=== PATIENT | female | born 2000 | race Caucasian/White ===

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

== ENCOUNTER 2021-08-12 00:37 | Outpatient (CLI) | payer OTHER, SELFPAY ==
--- NOTE | 2021-08-12 08:16 | DI.RAD_ITS ---
Exam(s) XR TOE RT GREAT EXAM: XR TOE RT GREAT CLINICAL HISTORY: GREAT TOE PAIN, M79.676. TECHNIQUE: 2D digital imaging was performed. COMPARISON: No exams were available for comparison FINDINGS: There is no evidence of acute fracture in the great toe phalanges and great toe metatarsal. No diast asis of the Lisfranc joint. No other fractures identified. Accessory ossicle/sesamoid bone is noted on the medial aspect of the foot adjacent to the navicular tuberosity. IMPRESSION: No fracture evident. DATA REPOSITORY: RADIATION DOSE DELIVERED:
== END 2021-08-12 00:57 ==
PROVIDERS: Visit Provider Family Medicine
DX: M79.674 Pain in right toe(s) (principal)
CPT/HCPCS: 73660

== ENCOUNTER 2021-08-17 22:29 | Outpatient (REF) | payer OTHER, SELFPAY ==
[2021-08-19 17:18] LABS: COVID-19 RT-PCR UVMMC Result Negative (Negative)
== END 2021-08-17 22:30 | disposition home or self-care (01) ==
LOC: NCHCN 22:29
PROVIDERS: Visit Provider Nurse Practitioner Family
DX: Z20.822 Contact with and (suspected) exposure to COVID-19 (principal); R05.8 Other specified cough; R09.81 Nasal congestion
CPT/HCPCS: U0003

== ENCOUNTER 2021-09-07 09:21 | Outpatient (REF) | payer OTHER, SELFPAY ==
[2021-09-08 23:17] LABS: COVID-19 RT-PCR UVMMC Result Negative (Negative)
== END 2021-09-07 09:22 | disposition home or self-care (01) ==
LOC: NCHCN 09:21
PROVIDERS: Visit Provider Nurse Practitioner Family
DX: Z20.822 Contact with and (suspected) exposure to COVID-19 (principal); J06.9 Acute upper respiratory infection, unspecified
CPT/HCPCS: U0003

== ENCOUNTER 2021-09-14 17:29 | Outpatient (REF) | payer SELFPAY ==
[2021-09-16 08:59] LABS: COVID-19 RT-PCR UVMMC Result Negative (Negative)
== END 2021-09-14 17:30 | disposition home or self-care (01) ==
LOC: NCHCN 17:29
PROVIDERS: Visit Provider Nurse Practitioner Family
DX: Z20.822 Contact with and (suspected) exposure to COVID-19 (principal)
CPT/HCPCS: U0003

== ENCOUNTER 2021-11-25 09:20 | Outpatient (REF) | payer OTHER, SELFPAY ==
[2021-11-25 12:36] LABS: Anion Gap 9.2 mmol/L (3-11); BUN 9 mg/dL (7-18); CO2 25.8 mmol/L (21.0-32.0); CREATININE 0.7 mg/dL (0.55-1.02); Calcium 9.1 mg/dL (8.5-10.1); Chloride 105 mmol/L (98-107); Glucose 105 mg/dL (74-106); Potassium 4.1 mmol/L (3.5-5.1); Sodium 140 mmol/L (136-145)
== END 2021-11-25 09:21 | disposition home or self-care (01) ==
LOC: NCHCN 09:20
PROVIDERS: Visit Provider Nurse Practitioner Family
DX: E23.2 Diabetes insipidus (principal)
CPT/HCPCS: 80048

== ENCOUNTER 2022-01-11 18:40 | Outpatient (REF) | payer OTHER, SELFPAY ==
[2022-01-11 19:37] LABS: TSH (W/Ref FT4) 1.13 uIU/mL (0.36-3.74)
== END 2022-01-11 18:41 | disposition home or self-care (01) ==
LOC: NCHCN 18:40
PROVIDERS: Visit Provider Nurse Practitioner Family
DX: R53.83 Other fatigue (principal)
CPT/HCPCS: 84443

== ENCOUNTER 2022-06-22 11:20 | Outpatient (CLI) | payer OTHER, SELFPAY ==
--- NOTE | 2022-06-22 15:30 | DI.RAD_ITS ---
Exam(s) XR FOOT LT COMPLETE EXAM: XR FOOT LT COMPLETE CLINICAL HISTORY: LT FOOT PAIN, M79.672. TECHNIQUE: 2D digital imaging was performed of the left foot. Three images were obtained. AP, obli que and lateral views were obtained. COMPARISON: No priors for comparison. FINDINGS: BONES: No acute fracture is present. No bony destructive lesion is seen. JOINTS: No dislocation present. SOFT TISSUE: Normal. IMPRESSION: No acute abnormality. DATA REPOSITORY: RADIATION DOSE DELIVERED:
== END 2022-06-22 11:40 ==
LOC: DI 11:24
PROVIDERS: Visit Provider Nurse Practitioner Family
DX: M79.672 Pain in left foot (principal)
CPT/HCPCS: 73630

== ENCOUNTER 2022-09-01 10:33 | Outpatient (REF) | payer OTHER, SELFPAY ==
--- NOTE | 2022-09-01 09:45 | PAPFT_PTH ---
PATIENT: Rika Bucio LOC: [facility] U#:[id number] AGE/SX: 22/F ROOM: RE09/01/[address]: Darshana Luo NP : 2000 BED: DIS: 09/01/2022 SPEC #: [id number] RECD: 09/01/22 12:57 STATUS: CAYET[place]O REQ #: [id number] FIONA: 09/01/22 09:[address]: Darshana Luo NP DEPT: [facility] Cytology RECD BY: Steffanie Yadav ENTERED: 09/01/22 12:58 SP TYPE: PAPFT OTHR DR: Ary Melgar Tissues: 1 - CX/ENDOCX FOR PAP SMEARS Procedures: PAP THIN PREP/UVM Screening Comments: [id number] (CHLAMYDIA/GC)
[2022-09-02 15:08] LABS: Chlamydia Result Negative (Negative); GC Result Negative (Negative)
== END 2022-09-01 10:34 | disposition home or self-care (01) ==
LOC: LBN 10:33
PROVIDERS: PCP Nurse Practitioner Family; Visit Provider Nurse Practitioner Women's Health
DX: Z11.3 Encounter for screening for infections with a predominantly sexual mode of transmission (principal); Z12.4 Encounter for screening for malignant neoplasm of cervix
CPT/HCPCS: 87491; 87591; 88142

== ENCOUNTER 2022-09-23 15:26 | Outpatient (REF) | payer BC, SELFPAY ==
--- NOTE | 2022-09-23 13:20 | LABIA_PTH ---
PATIENT: Rika Bucio LOC: [facility] U#:[id number] AGE/SX: 22/F ROOM: RE09/23/[address]: Yuridia Gutierrez MD : 2000 BED: DIS: 09/23/2022 SPEC #: [id number] RECD: 09/23/22 18:19 STATUS: CAYET[place]O REQ #: [id number] FIONA: 09/23/22 13:[address]: Yuridia Gutierrez DEPT: Surgical Specimen RECD BY: Steffanie Yadav ENTERED: 09/23/22 18:19 SP TYPE: LABIA OTHR DR: Ary Melgar Tissues: 1 - LABIA BX Procedures: GROSS AND MICRO LEVEL 4 Comments: [id number]
== END 2022-09-23 15:27 | disposition home or self-care (01) ==
LOC: LBN 15:26
PROVIDERS: PCP Nurse Practitioner Family; Visit Provider Obstetrics & Gynecology
DX: N90.89 Other specified noninflammatory disorders of vulva and perineum (principal)
CPT/HCPCS: 88305

== ENCOUNTER 2022-09-27 12:08 | Outpatient (REF) | payer BC, SELFPAY ==
[2022-09-27 16:06] LABS: Abs Immature Grans 0.02 10^3/uL (0.0-0.06); Absolute Basophil Count 0.07 10^3/uL (0.0-0.2); Absolute Lymphocyte Count 3.81 10^3/uL (1.2-3.4); Absolute Monocyte Count 0.64 10^3/uL (0.1-0.8); Absolute Neutrophil Count 6.49 10^3/uL (1.2-6.7); Basophils % 0.6; Eosinophils % 1.3; HCT 39.9 % (36.0-46.0); HGB 13.4 g/dL (11.2-15.7); Immature Grans % 0.2; Lymphocytes % 34.1; MCH 29.1 pg (27.0-33.0); MCHC 33.6 % (32.0-36.0); MCV 87 fL (80-95); MPV 9.9 fL (8.0-11.0); Monocytes % 5.7; Neutrophils % 58.1; Platelet Count 359 10^3/uL (130-400); RBC 4.61 10^6/uL (3.93-5.22); RDW 11.9 % (11.7-14.6); RDW-SD 37.9 fL; WBC 11.17 10^3/uL (4.4-10.8)
[2022-09-27 16:08] LABS: Absolute Eosinophil Count 0.15 10^3/uL (0.0-0.7)
[2022-09-27 16:35] LABS: ALT 60 U/L (14-59); AST 34 U/L (15-37); Albumin 3.8 g/dL (3.4-5.0); Alkaline Phosphatase 92 U/L (46-116); Anion Gap 6.3 mmol/L (3-11); BUN 6 mg/dL (7-18); Bilirubin, Total 0.5 mg/dL (0.2-1.0); CO2 27.7 mmol/L (21.0-32.0); CREATININE 0.8 mg/dL (0.55-1.02); Chloride 102 mmol/L (98-107); Estimated GFR 107.44 (mL/min/1.73m2); Glucose 95 mg/dL (74-106); Potassium 3.9 mmol/L (3.5-5.1); Sodium 136 mmol/L (136-145); Total Protein 7.3 g/dL (6.4-8.2)
== END 2022-09-27 12:09 | disposition home or self-care (01) ==
LOC: NCHCN 12:08
PROVIDERS: PCP Nurse Practitioner Family; Visit Provider Nurse Practitioner Family
DX: R10.10 Upper abdominal pain, unspecified (principal)
CPT/HCPCS: 80053; 85025

== ENCOUNTER 2022-10-25 15:10 | Outpatient (REF) | payer BC, SELFPAY ==
[2022-10-27 12:25] LABS: COVID-19 RT-PCR UVMMC Result Positive (Negative)
== END 2022-10-25 15:11 | disposition home or self-care (01) ==
LOC: LBN 15:10
PROVIDERS: PCP Nurse Practitioner Family; Visit Provider Nurse Practitioner Family
DX: Z20.822 Contact with and (suspected) exposure to COVID-19 (principal)
CPT/HCPCS: U0003

== ENCOUNTER 2023-01-10 18:49 | Outpatient (REF) | payer BC, SELFPAY ==
[2023-01-10 21:28] LABS: ALT 52 U/L (14-59); AST 24 U/L (15-37); Albumin 3.8 g/dL (3.4-5.0); Alkaline Phosphatase 82 U/L (46-116); Anion Gap 6.8 mmol/L (3-11); BUN 8 mg/dL (7-18); Bilirubin, Total 0.3 mg/dL (0.2-1.0); CO2 29.2 mmol/L (21.0-32.0); CREATININE 0.7 mg/dL (0.55-1.02); Calcium 8.9 mg/dL (8.5-10.1); Calculated LDL 127 mg/dL (<100); Chloride 101 mmol/L (98-107); Cholesterol 196 mg/dL (<200); Estimated GFR 126.11 (mL/min/1.73m2); Glucose 116 mg/dL (74-106); HDL Cholesterol 39 mg/dL (40-60); Potassium 3.8 mmol/L (3.5-5.1); Sodium 137 mmol/L (136-145); Total Protein 7.6 g/dL (6.4-8.2); Triglyceride 153 mg/dL (<150)
== END 2023-01-10 18:50 | disposition home or self-care (01) ==
LOC: NCHCN 18:49
PROVIDERS: PCP Nurse Practitioner Family; Visit Provider Nurse Practitioner Family
DX: R73.03 Prediabetes (principal); R94.5 Abnormal results of liver function studies; R79.89 Other specified abnormal findings of blood chemistry
CPT/HCPCS: 80053; 80061; 83036

== ENCOUNTER 2023-10-18 16:29 | Outpatient (REF) | payer BC, SELFPAY ==
[2023-10-20 14:52] LABS: Chlamydia Result Negative (Negative); GC Result Negative (Negative)
== END 2023-10-18 16:30 | disposition home or self-care (01) ==
LOC: LBN 16:29
PROVIDERS: PCP Nurse Practitioner Family; Visit Provider Advanced Practice Midwife
DX: N89.8 Other specified noninflammatory disorders of vagina (principal); Z11.3 Encounter for screening for infections with a predominantly sexual mode of transmission
CPT/HCPCS: 87491; 87591; 87480; 87510; 87660

== ENCOUNTER 2024-01-16 18:03 | Outpatient (REF) | payer BC, SELFPAY ==
[2024-01-16 19:26] LABS: Abs Immature Grans 0.04 10^3/uL (0.0-0.06); Absolute Basophil Count 0.07 10^3/uL (0.0-0.2); Absolute Eosinophil Count 0.21 10^3/uL (0.0-0.7); Absolute Lymphocyte Count 4.49 10^3/uL (1.2-3.4); Absolute Monocyte Count 0.82 10^3/uL (0.1-0.8); Basophils % 0.6 %; Eosinophils % 1.8 %; HCT 41.4 % (36.0-46.0); Immature Grans % 0.3 %; Lymphocytes % 38.3 %; MCH 29.3 pg (27.0-33.0); MCHC 33.8 % (32.0-36.0); MCV 87 fL (80-95); MPV 9.7 fL (8.0-11.0); Platelet Count 384 10^3/uL (130-400); RBC 4.78 10^6/uL (3.93-5.22); RDW 11.6 % (11.7-14.6); RDW-SD 36.8 fL; WBC 11.73 10^3/uL (4.4-10.8)
[2024-01-16 19:34] LABS: ALT 56 U/L (14-59); AST 19 U/L (15-37); Alkaline Phosphatase 81 U/L (46-116); Anion Gap 12.7 mmol/L (3-11); BUN 7 mg/dL (7-18); Bilirubin, Total 0.4 mg/dL (0.2-1.0); CO2 26.3 mmol/L (21.0-32.0); CREATININE 0.9 mg/dL (0.55-1.02); Calcium 9.6 mg/dL (8.5-10.1); Chloride 104 mmol/L (98-107); Glucose 162 mg/dL (74-106); Potassium 3.9 mmol/L (3.5-5.1); Sodium 143 mmol/L (136-145); TSH (W/Ref FT4) 1.25 uIU/mL (0.36-3.74); Total Protein 7.3 g/dL (6.4-8.2)
[2024-01-16 19:42] LABS: Hemoglobin A1C 6.5 % (<5.7)
== END 2024-01-16 18:04 | disposition home or self-care (01) ==
LOC: NCHCN 18:03
PROVIDERS: PCP Nurse Practitioner Family; Visit Provider Nurse Practitioner Family
DX: Z00.00 Encounter for general adult medical examination without abnormal findings (principal); R73.03 Prediabetes; R53.83 Other fatigue
CPT/HCPCS: 80053; 83036; 84443; 85025

== ENCOUNTER 2024-04-14 15:56 | Outpatient (REF) | payer BC, SELFPAY | END 2024-04-14 15:57 | disposition home or self-care (01) | LOC: LBN 15:56 | PROVIDERS: PCP Nurse Practitioner Family; Visit Provider Physician Assistant Medical | DX: J02.9 Acute pharyngitis, unspecified (principal) | CPT/HCPCS: 87070 ==

== ENCOUNTER 2024-08-03 09:24 | Outpatient (REF) | payer BC, SELFPAY ==
[2024-08-03 16:58] LABS: Hemoglobin A1C 6.6 % (<5.7)
== END 2024-08-03 09:25 | disposition home or self-care (01) ==
LOC: NCHCN 09:24
PROVIDERS: PCP Nurse Practitioner Family; Visit Provider Nurse Practitioner Family
DX: R73.03 Prediabetes (principal)
CPT/HCPCS: 83036

== ENCOUNTER 2024-08-05 11:13 | Emergency (ER) | payer BC, SELFPAY ==
[2024-08-05 11:17] VITALS: BP 140/84; PULSE 120; RESP 18; TEMP 36.6; O2SAT 96
--- NOTE | 2024-08-05 11:30 | DI.RAD_ITS ---
Exam(s) XR CHEST 2V PA LATERAL EXAM: XR CHEST 2V PA LATERAL CLINICAL HISTORY: Cough. TECHNIQUE: 2D digital imaging was performed. COMPARISON: No exams were available for comparison FINDINGS: 2 views: Heart size is normal. The mediastinum is not widened. Lungs are clear. No infiltrates nor pleural effusions. IMPRESSION: No acute pulmonary findings. DATA REPOSITORY: RADIATION DOSE DELIVERED:
[2024-08-05 11:37] LABS: Bilirubin Negative (Negative); Blood Moderate (Negative); Clarity Clear (Clear); Glucose Negative (Negative); Ketones 15 mg/dL (Negative); Leukocyte Esterase Negative (Negative); Nitrite Negative (Negative); Specific Gravity <= 1.005 (1.005-1.025); Urobilinogen 0.2 mg/dL (Up to 0.2); pH 6.5 (5-8)
--- NOTE | 2024-08-05 11:38 | W.ED.GENAD ---
Discharge Plan Disposition Patient Disposition: Home Condition: Stable Discharge Details Clinical Impression: Mononucleosis Primary Care Provider: Ary Melgar ED Provider: Kassandra Michaels Home Meds and New Rx's Prescriptions: No Action albuterol sulfate 90 mcg/actuation HFA aerosol inhaler 2 puff inhalation Q4H PRN (Reason: shortness of breath or wheezing) Qty: 8.5 0RF Nexplanon 68 mg implant 1 implant subdermal ONCE Rx Instructions: as a single dose propranolol 10 mg tablet 10 mg PO BID PRN desmopressin 0.1 mg tablet 0.2 mg PO BID Qty: 120 2RF Discharge Instructions Instructions: Mononucleosis Additional Instructions: At this time you have tested positive for mononucleosis. This is caused from Maia-Wilkerson virus. Treatment is usually symptomatic and supportive meaning Tylenol ibuprofen every 2-4 hours, and increasing fluids. CT shows no significant abnormality there is some enlarged lymph nodes noted which could be from the mono. Follow up with primary care provider in 3-5 days. Return to ED sooner if any worsening or concerns. Please take Tylenol or Ibuprofen with food every 4-6 hours as needed for pain and swelling. Stand Alone Forms: Work Release Referrals: Ary Melgar [Primary Care Provider] - 5 days HPI General Mode of arrival: ambulatory. Date/Time Provider Initiated Documentation: 08/05/24 11:16. Limitations to Documentation: no limitations. Information obtained by: patient, RN notes reviewed and old records reviewed. HPI Narrative: 23-year-old female presents to the ER with a chief complaint of headache, dizziness x 8 days and 4 days of vomiting. Patient was reportedly diagnosed by her PCP with type 2 diabetes 2 days ago. She has not started any treatment for this. She denies any recent head injuries. She does report recent URI type symptoms with a cough. Does have a past medical history of PCOS, diabetes insipidus, lactose intolerance, appendicitis. She denies any neck stiffness or any other associated concerns. Related Data Home Medications ?Medication ?Instructions ?Recorded ?Confirmed albuterol sulfate 90 mcg/actuation 2 puff inhalation Q4H PRN 01/19/21 08/05/24 aerosol inhaler shortness of breath or wheezing #8.5 grams desmopressin 0.1 mg tablet 0.2 mg (2 x 0.1 mg) PO BID #120 10/14/21 08/05/24 tab-caps etonogestrel 68 mg subdermal 1 implant subdermal ONCE 09/01/22 08/05/24 implant (Nexplanon) propranolol 10 mg tablet 10 mg PO BID PRN 09/01/22 08/05/24 Previous Rx's ?Medication ?Instructions ?Recorded albuterol sulfate 90 mcg/actuation 2 puff inhalation Q4H PRN 01/19/21 aerosol inhaler shortness of breath or wheezing #8.5 grams desmopressin 0.1 mg tablet 0.2 mg (2 x 0.1 mg) PO BID #120 10/14/21 tab-caps Allergies Allergy/AdvReac Type Severity Reaction Status Date / Time No Known Allergies Allergy Verified 08/05/24 11:40 General Stated Complaint: GenMedical JOSE: 3 Review of Systems All systems reviewed & are unremarkable except as noted in HPI and below Constitutional Constitutional: Reports as per HPI, Reports headache(s) and Reports poor appetite ENT Ears, Nose, Mouth, and Throat: Reports dizziness and Reports headache(s) Gastrointestinal Gastrointestinal: Reports nausea and Reports vomiting Neurologic Neurologic: Reports dizziness and Reports headache(s) Exam Narrative Exam Narrative: Constitutional: Alert and oriented x3. Appears stated age. Normal body habitus. Head: Normocephalic, no trauma. Eyes: Pupils PERRL, Red reflex noted, EOM's intact. Eyelids symmetrical without lesions, discharge, or swelling. ENT: Bilateral TM's WNL, External ear normal to inspection, no mastoid TTP, swelling, or erythema, Nasal turbinates WNL, no nasal discharge. Normal dentition, Posterior pharynx WNL, no exudate. Chest: RRR, Normal S1, S2, distal pulses intact. Resp: Lungs clear to auscultation bilaterally, no wheezes, rales, or rhonchi. Abdomen: Soft, non-distended, Normoactive bowel sounds all 4 quads. Musculoskeletal: Normal gait, Moves all 4 extremities without difficulty. Skin: No suspicious rashes or lesions. Capillary refill less than 2 sec. Neurologic: Cranial nerves II-XII intact. Alert and oriented x 3. Motor: No deficits noted. Sensory: Intact bilaterally all 4 extremities. Hematologic/Lymphatic: No ecchymosis, no lymphadenopathy. Course Vital Signs Vital signs: Vital Signs Temperature 36.6 C 08/05/24 11:17 Pulse 120 H 08/05/24 11:17 Respiratory Rate 18 08/05/24 11:17 Blood Pressure 140/84 08/05/24 11:17 Pulse Oximetry 96 08/05/24 11:17 Temperature 36.6 C 08/05/24 11:17 Temperature Source Oral 08/05/24 11:17 Pulse 120 H 08/05/24 11:17 Respiratory Rate 18 08/05/24 11:17 Blood Pressure 140/84 08/05/24 11:17 Blood Pressure Position Sitting 08/05/24 11:17 Pulse Oximetry 96 08/05/24 11:17 Oxygen Delivery Method Room Air 08/05/24 11:17 Oxygen Flow Rate 0 08/05/24 11:17 Lab/Test Results Lab/Test Results: POC- Test(urine) Negative Medical Decision Making Workup ordered including CBC CMP, UA lactate, chest x-ray. Will give Zofran and Toradol. Will also add on a Fluvid swab. CT abdomen ordered due to elevated liver enzymes and hepatitis panel added on. Linn added onto labs. Positive for mono, discussed results with patient who verbalized understanding. CT shows some enlarged lymph nodes and borderline splenomegaly which is consistent with mono. Patient discharged with home care follow-up care and strict return instructions she verbalized understanding. She tolerating p.o. without difficulty here in the department. This text was generated using [employer] system, please disregard any oddities of phrase or misspellings. Medical Records Medical records reviewed: Yes I reviewed the patient's medical records. Imaging Data Radiologic Study: Imaging: X-Ray Radiologist's impression: [facility] protocol: Radiologic exam of the chest. Views: 2 views. COMPARISON: No relevant prior studies available. FINDINGS: Lungs: Unremarkable. No consolidation. Pleural spaces: Unremarkable. No pleural effusion. No pneumothorax. Heart/Mediastinum: Unremarkable. No cardiomegaly. Bones/joints: Unremarkable. IMPRESSION: No acute findings. Thank you for allowing us to participate in the care of your patient. Dictated and Authenticated by: Alfredito Stevens MD Radiologic Study #2: Imaging: CT Scan Radiologist's impression: Liver: Normal. No mass. Gallbladder and biliary ducts: The gallbladder is unremarkable Pancreas: Normal. No ductal dilation. Spleen: Borderline splenomegaly 13 cm.. Adrenal glands: Normal. No mass. Kidneys and ureters: Normal. No hydronephrosis. Stomach and bowel: Unremarkable. No obstruction. No mucosal thickening. Appendix: Surgical clips in the cecum may reflect prior appendectomy Intraperitoneal space: Unremarkable. No free air. No significant fluid collection. Vasculature: See Lymph nodes finding. Lymph nodes: Pathologic node in the retroperitoneum between the aorta and IVC 12 x 10 mm. . Pathologic node in the left para-aortic region 12 x 10 mm . Anterior smaller nodes in the retroperitoneum. Recommend further evaluation. Urinary bladder: Unremarkable as visualized. Reproductive: Unremarkable as visualized. Bones/joints: Unremarkable. No acute fracture. BO HAYWARD Preliminary Radiology Report PUMPMAN (QA) DISCREPANCY? If there is a discrepancy between the preliminary and final interpretation, please notify [email or web address] via [email or web address]. If you do not have access to our QA portal, call our QA team at [phone] CONFIDENTIALITY STATEMENT This report is intended only for the use of the referring physician, and only in accordance with law, If you received this in error, call [phone] Page 2 of 2 Soft tissues: Umbilical hernia contains fat IMPRESSION: 1. Borderline splenomegaly 13 cm.. Differential diagnosis of splenomegaly is lymphoma/leukemia, mononucleosis, hemolytic anemia, portal hypertension. 2. Pathologic node in the left para-aortic region 12 x 10 mm . Anterior smaller nodes in the retroperitoneum. Recommend further evaluation. Thank you for allowing us to participate in the care of your patient. Dictated and Authenticated by: Alfredito Stevens MD Lab Data Lab results reviewed: Yes I reviewed the patient's lab results. Labs: Laboratory Tests Range/Units 08/05/24 08/05/24 08/05/24 11:25 11:37 11:47 WBC (4.4-10.8) 10^3/uL 10.31 RBC (3.93-5.22) 10^6/uL 4.91 Hgb (11.2-15.7) g/dL 14.6 Hct (36.0-46.0) % 42.2 MCV (80-95) fL 86 MCH (27.0-33.0) pg 29.7 MCHC (32.0-36.0) % 34.6 RDW (11.7-14.6) % 12.2 Plt Count (130-400) 10^3/uL 147 MPV (8.0-11.0) fL 9.5 Immature Gran % See Differential Neutrophils % % 23.0 Band Neutrophils % % 4 Lymphocytes % % 31.0 Atypical Lymphs % % 28 Monocytes % % 12.0 Eosinophils % % 1.0 Basophils % % 0.0 Metamyelocytes % 1 Nucleated RBC % (0.0-0.3) % 0.0 Absolute Neutrophils (1.2-6.7) 10^3/uL 2.78 Absolute Lymphocytes (1.2-3.4) 10^3/uL 6.08 H Absolute Monocytes (0.1-0.8) 10^3/uL 1.24 H Absolute Eosinophils (0.0-0.7) 10^3/uL 0.10 Absolute Basophils (0.0-0.2) 10^3/uL 0.00 RBC Morphology Normal VBG Lactate (0.6-1.4) mmol/L 1.5 H Sodium (136-145) mmol/L 138 Potassium (3.5-5.1) mmol/L 3.7 Chloride (98-107) mmol/L 101 Carbon Dioxide (21.0-32.0) mmol/L 24.8 Anion Gap (3-11) mmol/L 12.2 H BUN (7-18) mg/dL 5 L Creatinine (0.55-1.02) mg/dL 0.8 Est GFR (CKD-EPI 2020) (mL/min/1.73m2) 106.11 Glucose (74-106) mg/dL 116 H Calcium (8.5-10.1) mg/dL 9.1 Magnesium (1.8-2.4) mg/dL 1.9 Total Bilirubin (0.2-1.0) mg/dL 2.89 H AST (15-37) U/L 279 H ALT (14-59) U/L 340 H Alkaline Phosphatase (46-116) U/L 212 H Total Protein (6.4-8.2) g/dL 7.7 Albumin (3.4-5.0) g/dL 3.7 Lipase (<78) U/L 28 Urine Color (Yellow) Yellow Urine Clarity (Clear) Clear Urine pH (5-8) 6.5 Ur Specific Jolon (1.005-1.025) <= 1.005 Urine Protein (Neg-Trace) mg/dL Negative Urine Ketones (Negative) mg/dL 15 H Urine Blood (Negative) Moderate H Urine Nitrite (Negative) Negative Urine Bilirubin (Negative) Negative Urine Urobilinogen (Up to 0.2) mg/dL 0.2 Ur Leukocyte Esterase (Negative) Negative Urine RBC (0-2) HPF 5-10 H Urine WBC (0-5) HPF 0-2 Ur Epithelial Cells (Negative) HPF Few Urine Crystals (Negative) HPF Negative Urine Bacteria (Negative) HPF Few Urine Casts (Negative) LPF Negative Urine Mucus (Negative) Negative Ur Culture Indicated? No Urine Glucose (Negative) mg/dL Negative COVID-19 Source Nasopharynx SARS-CoV-2 (PCR) (Negative) Negative Monoscreen (Negative) POSITIVE A Influenza Type A (PCR) (Negative) Negative Influenza Type B (PCR) (Negative) Negative RSV (PCR) (Negative) Negative Quality:SDOH Health Related Social Needs: No Data to Display PFSH All Active Problems Mononucleosis (Acute) Screening examination for sexually transmitted disease (Acute) Mild intermittent asthma, uncomplicated (Acute 02/19/16) exercise trigger Gastroesophageal reflux disease (Acute 05/23/12) [facility] [place] normal endoscopy 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 on OCP Snoring Lactose intolerance Concussion (12/18/14) Vision problem WEARS GLASSES Closed fracture of phalanx of right little finger Surgical History Appendicitis with appendectomy Oct 2020 Tonsillectomy and adenoidectomy 2007 Family History Other Diabetes maternal Personal history of malignant neoplasm maternal Mother Diabetes insipidus Mental disorder PTSD/anxiety Asthma Bleeding disorder pt unsure of type, possibly factor V leiden Sister Mental disorder PTSD Asthma Father Essential hypertension Asthma GRANDPARENT Essential hypertension Social History Smoking/Tobacco Use Status: Never Smoking risk assessment performed?: Yes Alcohol Intake: current Alcohol Intake frequency: a few times a month Drug use: Never Substance use type: does not use Household members: friend(s) current occupation: secretary of police at [employer] Sexually active: Yes Do you think of yourself as: straight/heterosexual Current gender identity: female Additional Social history: unable to assess privately Female Reproductive History Menstrual control method: implanted (11/23/21 at [employer]) History History 0 Para Hx # Term Pregnancies Multiple births Hx # Pregnancies Ectopic pregnancies AB induced Hx Number of Living Children AB spontaneous
[2024-08-05 11:42] LABS: Lactate 1.5 mmol/L (0.6-1.4)
[2024-08-05 11:43] LABS: Abs Immature Grans 0.06 10^3/uL (0.0-0.06); HCT 42.2 % (36.0-46.0); HGB 14.6 g/dL (11.2-15.7); MCH 29.7 pg (27.0-33.0); MCHC 34.6 % (32.0-36.0); MCV 86 fL (80-95); MPV 9.5 fL (8.0-11.0); Platelet Count 147 10^3/uL (130-400); RBC 4.91 10^6/uL (3.93-5.22); RDW 12.2 % (11.7-14.6); RDW-SD 38.1 fL; WBC 10.31 10^3/uL (4.4-10.8)
[2024-08-05 11:47] LABS: Bacteria Few HPF (Negative); C & S Indicated? No; Casts Negative LPF (Negative); Crystals Negative HPF (Negative); Epithelial Cells Few HPF (Negative); Mucus Negative (Negative); WBC 0-2 HPF (0-5)
[2024-08-05] MEDS: Ketorolac 10 MG TAB PO (12:00)
[2024-08-05] MEDS: Ondansetron O.D.T. 4 MG TABEF PO (12:00)
[2024-08-05 12:02] VITALS: BP 126/76; PULSE 99; RESP 16; O2SAT 97
[2024-08-05 12:06] LABS: ALT 340 U/L (14-59); AST 279 U/L (15-37); Albumin 3.7 g/dL (3.4-5.0); Alkaline Phosphatase 212 U/L (46-116); Anion Gap 12.2 mmol/L (3-11); BUN 5 mg/dL (7-18); Bilirubin, Total 2.89 mg/dL (0.2-1.0); CO2 24.8 mmol/L (21.0-32.0); CREATININE 0.8 mg/dL (0.55-1.02); Calcium 9.1 mg/dL (8.5-10.1); Chloride 101 mmol/L (98-107); Estimated GFR 106.11 (mL/min/1.73m2); Glucose 116 mg/dL (74-106); Lipase 28 U/L (<78); Magnesium 1.9 mg/dL (1.8-2.4); Potassium 3.7 mmol/L (3.5-5.1); Sodium 138 mmol/L (136-145); Total Protein 7.7 g/dL (6.4-8.2)
--- NOTE | 2024-08-05 12:14 | DI.VRAD_ITS ---
PROCEDURE INFORMATION: Exam: XR Chest Exam date and time: 08/05/2024 11:53 AM Age: 24 years old Clinical indication: Other: Cough TECHNIQUE: Imaging protocol: Radiologic exam of the chest. Views: 2 views. COMPARISON: No relevant prior studies available. FINDINGS: Lungs: Unremarkable. No consolidation. Pleural spaces: Unremarkable. No pleural effusion. No pneumothorax. Heart/Mediastinum: Unremarkable. No cardiomegaly. Bones/joints: Unremarkable. IMPRESSION: No acute findings. Dictated and Authenticated by: Alfredito Stevens MD. Ordering:SAUL Cannon MD
--- NOTE | 2024-08-05 12:15 | DI.CT_ITS ---
Exam(s) CT ABDOMEN PELVIS W EXAM: CT ABDOMEN PELVIS W x CLINICAL HISTORY: Vomiting, elevated LFTs. TECHNIQUE: Imaging Protocol: Axial computed tomography images with coronal and sagittal reformatted images were created and reviewed CONTRAST MATERIAL: Intravenous: Omnipaque-350 100cc Oral: None COMPARISON: No exams were available for comparison FINDINGS: VISUALIZED LUNG BASES: No nodules nor pleural effusions evident. ABDOMEN: There is no ascites. LIVER: There are no focal hepatic lesions evident. No dilated intrahepatic ducts. GALLBLADDER/BILIARY: No obvious gallbladder pathology. CBD is not dilated. PANCREAS: No evidence of pancreatic mass nor dilatation of the pancreatic duct. SPLEEN: Borderline splenomegaly. Cephalocaudal measurement of the spleen is 13 cm. There are no spl enic lesions. Splenic and portal veins are patent. ADRENALS: There are no significant adrenal masses. KIDNEYS:No cysts evident. No solid renal masses. No calculi nor hydronephrosis.. ABDOMINAL AORTA: Abdominal aorta is not enlarged. LYMPH NODES:There is mild para-aortic adenopathy with largest left para-aortic lymph node measuring 1 2 x 10 mm. There is also similar size and appearing appearing lymph node between the aorta and IVC. There is no adenopathy around the iliac chains. Few shoddy slightly prominent lymph nodes are noted in both inguinal regions. There are slightly prominent mesenteric lymph nodes. Largest of these is medial to the ascending-right colon and measures approximately 2.2 by 1.7 cm ABDOMINAL WALL: No evidence of significant anterior abdominal wall nor inguinal hernia. GI: There is no evidence of bowel obstruction, free air, nor abscess. PELVIS: GI: The appendix is surgically absent.No evidence of sigmoid diverticulitis. REPRODUCTIVE: Uterus and ovaries appear age-appropriate. There is no free fluid in the pelvis. URINARY BLADDER: No calculi nor obvious masses evident OSSEOUS: No fractures. No osseous lesions. Sacroiliac joints appear unremarkable. No disc space na rrowing. No listhesis. IMPRESSION: 1. There is borderline splenomegaly (13 cm) and there are enlarged para-aortic and mesenteric lymph n odes. Recommend testing for mononucleosis. Cannot exclude lymphoma. Recommend further follow-up im aging including possible CT scan of the chest. 2. Appendix is surgically absent. No evidence of bowel obstruction RADIATION DOSE DELIVERED: 634.66mGy.cm Total DLP DATA REPOSITORY: All CT scans at this facility are submitted to the National Radiology Data Registry (NRDR) Dose Index Registry (DIR) with the [employer] (ACR). RADIATION OPTIMIZATION: All CT scans at this facility use at least one of these dose optimization te chniques: automated exposure control; mA and/or kV adjustment per patient size (includes targeted exa ms where dose is matched to clinical indication); or iterative reconstruction.
[2024-08-05 12:17] LABS: Absolute Lymphocyte Count 6.08 10^3/uL (1.2-3.4); Absolute Monocyte Count 1.24 10^3/uL (0.1-0.8); Absolute Neutrophil Count 2.78 10^3/uL (1.2-6.7); Atypical Lymphocytes % 28 %; Bands % 4 %
[2024-08-05 12:18] LABS: Diff Comment Diff Reviewed; Metamyelocytes % 1; RBC Morphology Normal
[2024-08-05 12:28] LABS: COVID-19 PCR Negative (Negative); Influenza A PCR Negative (Negative); Influenza B PCR Negative (Negative); RSV PCR Negative (Negative)
[2024-08-05 12:29] LABS: Source Nasopharynx
[2024-08-05] MEDS: Normal Saline - Diluent 50 ML VIAL IJ (12:50)
[2024-08-05] MEDS: Omnipaque 350 MG/ML 100 ML BTL IJ (12:51)
[2024-08-05 12:55] LABS: Mono Screening POSITIVE (Negative)
--- NOTE | 2024-08-05 13:08 | DI.VRAD_ITS ---
PROCEDURE INFORMATION: Exam: CT Abdomen And Pelvis With Contrast Exam date and time: 08/05/2024 12:53 PM Age: 24 years old Clinical indication: Pain; Other: Vomiting, elevated lfts TECHNIQUE: Imaging protocol: Computed tomography of the abdomen and pelvis with contrast. Contrast material: OMNIPAQUE 350; Contrast volume: 100 ml; Contrast route: INTRAVENOUS (IV); COMPARISON: US ABDOMEN 10/22/2022 8:19 AM FINDINGS: Liver: Normal. No mass. Gallbladder and biliary ducts: The gallbladder is unremarkable Pancreas: Normal. No ductal dilation. Spleen: Borderline splenomegaly 13 cm.. Adrenal glands: Normal. No mass. Kidneys and ureters: Normal. No hydronephrosis. Stomach and bowel: Unremarkable. No obstruction. No mucosal thickening. Appendix: Surgical clips in the cecum may reflect prior appendectomy Intraperitoneal space: Unremarkable. No free air. No significant fluid collection. Vasculature: See Lymph nodes finding. Lymph nodes: Pathologic node in the retroperitoneum between the aorta and IVC 12 x 10 mm. . Pathologic node in the left para-aortic region 12 x 10 mm . Anterior smaller nodes in the retroperitoneum. Recommend further evaluation. Urinary bladder: Unremarkable as visualized. Reproductive: Unremarkable as visualized. Bones/joints: Unremarkable. No acute fracture. Soft tissues: Umbilical hernia contains fat IMPRESSION: 1. Borderline splenomegaly 13 cm.. Differential diagnosis of splenomegaly is lymphoma/leukemia, mononucleosis, hemolytic anemia, portal hypertension. 2. Pathologic node in the left para-aortic region 12 x 10 mm . Anterior smaller nodes in the retroperitoneum. Recommend further evaluation. Dictated and Authenticated by: Alfredito Stevens MD. Ordering:SAUL Cannon MD
[2024-08-06 18:40] LABS: Hepatitis A Antibody IgM Negative (Negative); Hepatitis B Core Antibody Negative (Negative); Hepatitis B surface Ag Negative (Negative); Hepatitis C Ab w Rflx HCV PCR Negative (Negative)
== END 2024-08-05 13:41 | disposition home or self-care (01) ==
PROVIDERS: Emergency Provider Registered Nurse Emergency; PCP Nurse Practitioner Family
DX: B27.90 Infectious mononucleosis, unspecified without complication (principal); E11.9 Type 2 diabetes mellitus without complications; Z90.81 Acquired absence of spleen
CPT/HCPCS: 36415; 80053; 81025; 83690; 86704; 86709; 86803; 87340; 87637; 99285; 71046; 74177; 81003; 81015; 83605; 83735; 85025; 86308; J3490

== ENCOUNTER 2024-08-12 23:08 | Emergency (ER) | payer BC, SELFPAY ==
[2024-08-12 23:20] VITALS: BP 156/97; PULSE 97; RESP 18; TEMP 36.2; O2SAT 99
[2024-08-12 23:28] VITALS: BP 156/97; PULSE 99; RESP 18; O2SAT 99
--- NOTE | 2024-08-12 23:38 | ED.GENADUL_ITS ---
Discharge Plan Disposition Patient Disposition: Home Condition: Good Discharge Details Clinical Impression: Mononucleosis Primary Care Provider: Ary Melgar ED Provider: Adriana Clarke Home Meds and New Rx's Prescriptions: Continued Nexplanon 68 mg implant 1 implant subdermal ONCE Rx Instructions: as a single dose desmopressin 0.1 mg tablet 0.2 mg PO BID Qty: 120 2RF Discharge Instructions Instructions: Mononucleosis Additional Instructions: Tylenol and ibuprofen over the counter for pain; follow the directions on the bottle. You can try over the counter throat sprays and lozenges. No contact sports for one month. Call your primary care doctor on Tuesday to schedule an appointment to be seen within the next 72 hours to followup on your visit today. At that visit mention your blood pressure which is high here today. Return the emergency department for new or worsening symptoms including fever, abdominal pain, inability to swallow your spit, difficulty breathing, or if you have any other concerns. Stand Alone Forms: Work Release Referrals: Ary Melgar [Primary Care Provider] - [facility] General Mode of arrival: ambulatory . Date/Time Provider Initiated Documentation: 08/12/24 23:11 . Limitations to Documentation: no limitations . Information obtained by: patient and old records reviewed (ed visit note 08/05/24) . HPI Narrative: 24yoF with hx DM, DI, asthma, recent diagnosis of mononucleosis (08/05/24), presenting for sore throat. Pain is worse with swallowing. Has been taking dayquil/nyquil and ibuprofen at home however pain persists. No difficulty with secretions. Able to swallow medications and liquids. Some associated nausea which is relieved by zofran, no vomiting. She is concerned because the pain is worsening and she does not feel like she can go to work tomorrow. Otherwise in her usual state of health with no fevers, chills, rash, abdominal pain, or other concerns. Related Data Home Medications ?Medication ?Instructions ?Recorded ?Confirmed desmopressin 0.1 mg tablet 0.2 mg (2 x 0.1 mg) PO BID #120 10/14/21 08/12/24 tab-caps etonogestrel 68 mg subdermal 1 implant subdermal ONCE 09/01/22 08/12/24 implant (Nexplanon) Previous Rx's ?Medication ?Instructions ?Recorded desmopressin 0.1 mg tablet 0.2 mg (2 x 0.1 mg) PO BID #120 10/14/21 tab-caps Allergies Allergy/AdvReac Type Severity Reaction Status Date / Time No Known Allergies Allergy Verified 08/12/24 23:35 General Stated Complaint: Sorethroat JOSE: 4 Review of Systems Narrative: see HPI Exam Narrative Exam Narrative: General: Alert, well appearing, well nourished, in no acute distress. Head: Normocephalic, atraumatic Neck: Trachea midline, ?Neck supple. Tender anterior cervical lymphadenopathy. ENT: ?MMM.? Oropharygeal injection with no lesions or exudate. Uvula midline. Cardiac: ?HR 90's, regular, no murmurs appreciated Resp: No respiratory distress. CTAB. No difficulty with secretions. Abd: ?Soft, non-distended, nontender Extremities: ?No deformities.? No peripheral edema. Neurologic: GCS 15. ? Moves all extremities freely against gravity Course Vital Signs Vital signs: Vital Signs Temperature 36.2 C L 08/12/24 23:20 Pulse 97 H 08/12/24 23:20 Respiratory Rate 18 08/12/24 23:20 Blood Pressure 156/97 H 08/12/24 23:20 Pulse Oximetry 99 08/12/24 23:20 Temperature 36.2 C L 08/12/24 23:20 Temperature Source Temporal Artery Scan 08/12/24 23:20 Pulse 99 H 08/12/24 23:28 Respiratory Rate 18 08/12/24 23:28 Respiratory Effort Normal 08/12/24 23:28 Blood Pressure 156/97 H 08/12/24 23:28 Blood Pressure Position Sitting 08/12/24 23:20 Pulse Oximetry 99 08/12/24 23:28 Oxygen Delivery Method Room Air 08/12/24 23:28 Oxygen Flow Rate 0 08/12/24 23:20 Pain Level 8 08/12/24 23:20 Medical Decision Making 24yoF with hx DM, DI, asthma, recent diagnosis of mononucleosis (08/05/24), presenting for sore throat. No difficulty with secretions. Able to swallow medications and liquids. Concerned because the pain is worsening and she does not feel like she can go to work tomorrow. Otherwise well. Slightly tachcyardiac to 90's on arrival, vital signs otherwise reassuring . Well hydrated on exam, oropharyngeal injection with otherwise normal intraoral exam. Not concerning for retropharyngeal abscess, parapharyngeal space infection, Perez's, peritonsillar abscess, epiglottis, Lemierre's. Unlikely sepsis. No indication for bloodwork or CT imaging. Rapid strep sent from triage and negative; sent for culture though unlikely strep with known diagnosis of EBV. Will treat symptoms with tylenol, toradol here, and provide work note. PO challenged and tolerated well. Repeat HR after oral hydration improved to 80's. Advised continued symptomatic treatment at home, PCP followup. Work note provided. Discharged home;discahrge instructions and return precuations were reviewed with patient who verbalized understanding. All questions were answered and she is in agreement with the plan. Lab Data Lab results reviewed: Yes I reviewed the patient's lab results. 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 on OCP Snoring Lactose intolerance Concussion (12/18/14) Vision problem WEARS GLASSES Closed fracture of phalanx of right little finger Surgical History Appendicitis with appendectomy Oct 2020 Tonsillectomy and adenoidectomy 2007 Family History Other Diabetes maternal Personal history of malignant neoplasm maternal Mother Diabetes insipidus Mental disorder PTSD/anxiety Asthma Bleeding disorder pt unsure of type, possibly factor V leiden Sister Mental disorder PTSD Asthma Father Essential hypertension Asthma GRANDPARENT Essential hypertension Social History Smoking/Tobacco Use Status: Never Smoking risk assessment performed?: Yes Alcohol Intake: current Alcohol Intake frequency: a few times a month Drug use: Never Substance use type: does not use Household members: friend(s) Housing: apartment current occupation: dental office receptionist at [employer] Sexually active: Yes Do you think of yourself as: straight/heterosexual Current gender identity: female Do you feel safe at home: Yes Additional Social history: unable to assess privately Female Reproductive History Menstrual control method: implanted (11/23/21 at [employer]) History History 0 Para Hx # Term Pregnancies Multiple births Hx # Pregnancies Ectopic pregnancies AB induced Hx Number of Living Children AB spontaneous
[2024-08-12] MEDS: Acetaminophen Solution 650 MG/20.3 ML CUP PO (23:44)
[2024-08-12] MEDS: Ketorolac 15 MG/ML VIAL IM (23:45)
[2024-08-12 23:53] VITALS: PULSE 100
[2024-08-13 01:15] VITALS: BP 137/90; PULSE 89; RESP 16; TEMP 36.6; O2SAT 98
== END 2024-08-13 01:26 | disposition home or self-care (01) ==
LOC: ER 08-13 00:09
PROVIDERS: Emergency Provider Student in an Organized Health Care Education/Training Program; PCP Nurse Practitioner Family
DX: R07.0 Pain in throat (principal); H92.03 Otalgia, bilateral; B27.90 Infectious mononucleosis, unspecified without complication; J45.20 Mild intermittent asthma, uncomplicated; E23.2 Diabetes insipidus
CPT/HCPCS: 96372; 99284; 87081; 99283; J1885

== ENCOUNTER 2024-09-14 14:52 | Outpatient (REF) | payer BC, SELFPAY ==
[2024-09-07 21:37] LABS: Bacteria Few HPF (Negative); C & S Indicated? C&S Done As Ordered; Crystals Negative HPF (Negative); Epithelial Cells Many HPF (Negative); Mucus Negative (Negative); Other Cells Negative (Negative); RBC 0-2 HPF (0-2); WBC 20-50 HPF (0-5)
== END 2024-09-14 14:53 | disposition home or self-care (01) ==
LOC: LBN 14:52
PROVIDERS: PCP Nurse Practitioner Family; Visit Provider Family Medicine
DX: N39.0 Urinary tract infection, site not specified (principal)
CPT/HCPCS: 87077; 81015; 87086; 87186

== ENCOUNTER 2025-01-24 17:41 | Outpatient (REF) | payer BC, SELFPAY ==
[2025-01-24 19:55] LABS: HCT 39.2 % (36.0-46.0); HGB 13.7 g/dL (11.2-15.7); MCH 29.8 pg (27.0-33.0); MCHC 34.9 % (32.0-36.0); MCV 85 fL (80-95); MPV 9.8 fL (8.0-11.0); Platelet Count 344 10^3/uL (130-400); RDW 12.1 % (11.7-14.6); RDW-SD 37.1 fL; WBC 9.84 10^3/uL (4.4-10.8)
[2025-01-24 20:10] LABS: Hemoglobin A1C 5.6 % (<5.7)
[2025-01-24 20:20] LABS: ALT 33 U/L (14-59); AST 17 U/L (15-37); Alkaline Phosphatase 76 U/L (46-116); Anion Gap 8.7 mmol/L (3-11); BUN 8 mg/dL (7-18); Bilirubin, Total 0.4 mg/dL (0.2-1.0); CO2 26.3 mmol/L (21.0-32.0); CREATININE 0.7 mg/dL (0.55-1.02); Calcium 9.2 mg/dL (8.5-10.1); Chloride 102 mmol/L (98-107); Estimated GFR 124.55 (mL/min/1.73m2); Glucose 143 mg/dL (74-106); Potassium 4.1 mmol/L (3.5-5.1); Sodium 137 mmol/L (136-145)
[2025-01-24 20:30] LABS: COMMENT (LAB VIEW ONLY) 58.36 mg/dL; Microalb ug/mg Crea 4.1 ug/mg Cr
[2025-01-27 09:36] LABS: HIV-1/2 Ag & Ab Screen Negative (Negative)
== END 2025-01-24 17:42 | disposition home or self-care (01) ==
LOC: NCHCN 17:41
PROVIDERS: PCP Nurse Practitioner Family; Visit Provider Nurse Practitioner Family
DX: Z00.00 Encounter for general adult medical examination without abnormal findings (principal); E11.9 Type 2 diabetes mellitus without complications
CPT/HCPCS: 80053; 85027; 87389; 82043; 82570; 83036